=== PATIENT | female | born 1940 | race Caucasian/White ===

== ENCOUNTER 2019-06-26 11:19 | Emergency (ER) | payer MEDICARE, OTHER ==
--- NOTE | 2019-06-26 11:30 | EDM.PDOC ---
ED HPI GENERAL MEDICAL PROBLEM - General Stated Complaint: ER Time Seen by Provider: 06/26/19 11:30 Source of Information: Reports: Patient - History of Present Illness INITIAL COMMENTS - FREE TEXT/NARRATIVE: Patient fell and fractured her left ankle. Came in by EMS. He does appear to be fractured and dislocated. I did have correspondence with Ashley from orthoped[facility] and also ER physician Dr. Nicholas. He is he accepting physician. Patient will need a reduction and I am not comfortable with doing that here without a orthopedic surgeon nearby. 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 I did give her a dose of Dilaudid. Onset: Today Duration: Getting Worse Location: Reports: Lower Extremity, Left Quality: Reports: Sharp, Stabbing, Throbbing Severity: Moderate Improves with: Reports: Immobilization Worsens with: Reports: Movement Context: Reports: Trauma Associated Symptoms: Reports: No Other Symptoms - Related Data Allergies Allergy/AdvReac Type Severity Reaction Status Date / Time No Known Allergies Allergy Verified 10/10/13 13:13 Home Meds: Home Meds Calcium Carbonate/Vitamin D3 [Calcium 500 + Vit D 400] 1 each PO DAILY@12 [History] Glucosam/Chond/Collagen/Hyalur [Glucosamine Chondroitin] 1 each PO TID 10/10/13 [History] Loperamide HCl/Simethicone [Imodium Multi-Symptom Rel Cplt] 1 each PO ASDIRECTED PRN 10/10/13 [History] Menthol/Zinc Oxide [[place] Medicated Body Powd] 1 applic TP ASDIRECTED PRN [History] Multivitamin with Minerals [Multivitamins with Minerals] 1 each PO TUTHSA [History] Simvastatin [Zocor] 20 mg PO BEDTIME 10/10/13 [History] amLODIPine [Norvasc] 5 mg PO DAILY 10/10/13 [History] Acetaminophen [Tylenol Extra Strength] 500 mg PO BID 08/15/14 [History] Calcium Carbonate/Vitamin D3 [Calcium 500-Vit D3 400 Tablet] 2 tab PO DAILY@18 08/15/14 [History] Cholecalciferol (Vitamin D3) [Vitamin D3] 2,000 unit PO DAILY 08/15/14 [History] Loratadine [Claritin] 10 mg PO DAILY 08/15/14 [History] Alum Hydrox/Mag Hydrox/Simeth [Mag-Al Plus] 10 ml PO ASDIRECTED PRN 08/18/14 [ History] Olmesartan/Hydrochlorothiazide [Olmesartan-Hctz 20-12.5 mg Tab] 1 each PO DAILY 06/26/19 [History] Omeprazole 40 mg PO DAILY 06/26/19 [History] Oxybutynin 5 mg PO DAILY 06/26/19 [History] Past Medical History Cardiovascular History: Reports: Hypertension Social & Family History - Tobacco Use Smoking Status *Q: Unknown Ever Smoked Review of Systems - Review of Systems Review Of Systems: Comprehensive ROS is negative, except as noted in HPI. ED EXAM, GENERAL - Physical Exam Exam: See Below Exam Limited By: No Limitations General Appearance: Alert, Moderate Distress Respiratory/Chest: No Respiratory Distress Cardiovascular: Normal Peripheral Pulses Extremities: Leg Pain, Other (Deformity of the left ankle. Good pedal pulse. Good distal pulses. I do not challenge her range of motion because of the deformity.) Course - Vital Signs Text/Narrative:: X-rays transpired. Correspondence with [facility]. Also correspondence with Dr. Nicholas ER physician at [facility]. He accepted the patient at 1250. I did labs and EKG prior to her departure. NPO. IVF NS @75. - Orders/Labs/Meds Orders: Active Orders 24 hr Category Date Time Status EKG 12 Lead [EKG Documentation Completion] [RC] STAT Care 06/26/19 13:00 Ordered CBC WITH AUTO DIFF [HEME] Stat Lab 06/26/19 13:00 Ordered COMPREHENSIVE METABOLIC PN,CMP [CHEM] Stat Lab 06/26/19 13:00 Ordered MAGNESIUM [CHEM] Stat Lab 06/26/19 13:00 Ordered Meds: Medications Discontinued Medications Generic Name Dose Route Start Last Admin Trade Name Freq PRN Reason Stop Dose Admin Hydromorphone HCl 1 mg 06/26/19 12:25 06/26/19 12:30 Dilaudid IVPUSH 06/26/19 12:26 1 mg ONETIME ONE Administration Ondansetron HCl 8 mg 06/26/19 12:37 Zofran IVPUSH 06/26/19 12:38 ONETIME ONE Departure - Departure Time of Disposition: 12:55 Disposition: DC/Tfer to Medicaid [facility] Condition: Fair Clinical Impression: Dislocation of left ankle joint Qualifiers: Encounter type: initial encounter Qualified Code(s): S93.05XA - Dislocation of left ankle joint, initial encounter Closed left ankle fracture Qualifiers: Encounter type: initial encounter Qualified Code(s): S82.892A - Other fracture of left lower leg, initial encounter for closed fracture - Discharge Information *PRESCRIPTION DRUG MONITORING PROGRAM REVIEWED*: Not Applicable *COPY OF PRESCRIPTION DRUG MONITORING REPORT IN PATIENT CRISTINA: Not Applicable Referrals: Amy Grant DO [Primary Care Provider] - Forms: [facility] Event Note - Focused Exam Date Exam was Performed: 06/26/19 Time Exam was Performed: 13:11 - My Orders Last 24 Hours: My Active Orders 06/26/19 13:00 EKG 12 Lead [EKG Documentation Completion] [RC] STAT CBC WITH AUTO DIFF [HEME] Stat COMPREHENSIVE METABOLIC PN,CMP [CHEM] Stat MAGNESIUM [CHEM] Stat - Assessment/Plan Last 24 Hours: My Active Orders 06/26/19 13:00 EKG 12 Lead [EKG Documentation Completion] [RC] STAT CBC WITH AUTO DIFF [HEME] Stat COMPREHENSIVE METABOLIC PN,CMP [CHEM] Stat MAGNESIUM [CHEM] Stat
--- NOTE | 2019-06-26 12:18 | CR ---
[id number] RAD/RAD Ankle Left 3V Min EXAM: LEFT ANKLE 3 VIEWS INDICATION: TRAUMA, DISLOCATED LEFT ANKLE. COMPARISON: None. DISCUSSION: There is a trimalleolar fracture with posterior lateral dislocation of the talus and associated posterior lateral displacement of the the fibula and posterior medial malleoli. Moderate midfoot osteoarthritis. Achilles tendon attachment enthesopathy. Diffuse soft tissue swelling. IMPRESSION: 1. Trimalleolar ankle fracture dislocation. Ciro Zayas MD 06/26/19 2311 Thank you for allowing us to participate in the care of your patient.
[2019-06-26] MEDS ORDERED: HYDROmorphone 1 MG/ML Syringe IVPUSH ONE (12:25)
[2019-06-26] MEDS ORDERED: Ondansetron 4 MG/2 ML SDV IVPUSH ONE (12:37)
[2019-06-26] MEDS ORDERED: Sodium Chloride 0.9% 1,000 ML IV STA (13:12)
[2019-06-26 13:15] VITALS: BP 185/62; PULSE 105
[2019-06-26 13:43] LABS: ANION GAP 17.9 mmol/L (10-20)
== END 2019-06-26 13:45 | disposition short-term general hospital (02) ==
LOC: VM.ED 11:19
DX: S82.852A Displaced trimalleolar fracture of left lower leg, initial encounter for closed fracture (principal); I10 Essential (primary) hypertension; Z79.899 Other long term (current) drug therapy; W00.0XXA Fall on same level due to ice and snow, initial encounter
CPT/HCPCS: 36415; 73610; 80053; 83735; 85025; 93005; 96374; 99283; 99285; J1170; J7030

== ENCOUNTER 2022-03-15 13:04 | Emergency (ER) | payer MEDICARE, OTHER ==
[2022-03-15] MEDS ORDERED: GI Cocktail Oral Solution 30 ML PO ONE (13:30)
[2022-03-15 13:45] LABS: ANION GAP 15.6 mmol/L (5-15); CHLORIDE,CL 99 mmol/L (98-107); ESTIMATED GFR 32 mL/min (>=60); SODIUM,NA 136 mmol/L (136-145)
[2022-03-15 17:12] VITALS: BP 176/80; PULSE 92
== END 2022-03-15 14:20 | disposition home or self-care (01) ==
LOC: VM.ED 13:04
DX: K21.9 Gastro-esophageal reflux disease without esophagitis (principal); I10 Essential (primary) hypertension; Z79.899 Other long term (current) drug therapy
CPT/HCPCS: 36415; 71045; 80053; 84484; 85025; 99284; A9270

== ENCOUNTER 2022-12-16 12:57 | Emergency (ER) | payer MEDICARE, OTHER ==
[2022-12-16] MEDS: Lactated Ringers 1,000 ML IV ONE (13:13)
[2022-12-16 13:41] LABS: BASOPHILS PERCENT AUTO 0.5 % (0.2-1.2); EOSINOPHILS PERCENT AUTO 0.1 % (0.0-4.0); IMMATURE GRAN ABSOLUTE AUTO 0.01 x10^3/uL (0.00-0.07); LYMPHOCYTES ABSOLUTE AUTO 1.2 x10^3/uL (1.0-4.8); LYMPHOCYTES PERCENT AUTO 15.4 % (25.0-50.0); MEAN CORPUSCULAR HGB CONC 35.3 g/dL (32.0-36.0); MEAN CORPUSCULAR VOLUME 99.1 fL (78.0-93.0); MONOCYTES PERCENT AUTO 12.9 % (2.0-11.0); NEUTROPHILS ABSOLUTE AUTO 5.7 x10^3/uL (1.8-7.7); PLATELET COUNT,PLT 230 x10^3/uL (130-400); RED BLOOD CELL COUNT 3.43 x10^6/uL (4.00-5.50); WHITE BLOOD CELL COUNT,WBC 8.1 x10^3/uL (4.0-10.0)
[2022-12-16 13:58] LABS: PROTHROMBIN TIME 10.4 SEC (9.5-12.2); PTT,PARTIAL THROMBOPLSTIN TIME 27.9 SEC (23.6-33.6)
[2022-12-16 14:02] LABS: A/G RATIO 0.89; ALANINE AMINOTRANSFERASE,ALT 14 U/L (14-59); ALBUMIN 3.4 g/dL (3.4-5.0); ALKALINE PHOSPHATASE 84 U/L (46-116); ASPARTATE AMNIOTRANSFERASE,AST 22 U/L (15-37); BILIRUBIN TOTAL 0.5 mg/dL (0.2-1.0); BLOOD UREA NITROGEN,BUN 24 mg/dL (7-18); CALCIUM 9.3 mg/dL (8.5-10.1); CARBON DIOXIDE,CO2 23 mmol/L (21-32); CHLORIDE,CL 99 mmol/L (98-107); CREATININE 1.6 mg/dL (0.55-1.02); GLUCOSE RANDOM 119 mg/dL (70-99); MAGNESIUM 1.7 mg/dL (1.8-2.4); PHOSPHORUS 3.1 mg/dL (2.6-4.7); PROTEIN TOTAL,TP 7.2 g/dL (6.4-8.2); SODIUM,NA 135 mmol/L (136-145)
[2022-12-16 14:03] LABS: ESTIMATED GFR 32 mL/min (>=60)
[2022-12-16 15:28] VITALS: BP 136/78; PULSE 81
== END 2022-12-16 14:35 | disposition home or self-care (01) ==
LOC: VM.ED 12:57
DX: R55 Syncope and collapse (principal); E78.00 Pure hypercholesterolemia, unspecified; I10 Essential (primary) hypertension; E66.9 Obesity, unspecified; Z88.8 Allergy status to other drugs, medicaments and biological substances; Z79.899 Other long term (current) drug therapy
CPT/HCPCS: 70450; 71045; 80053; 83735; 84100; 84484; 85025; 85610; 85730; 86140; 93010; 96360; 99284; 99285; J7120; 36415

== ENCOUNTER 2023-01-16 09:26 | Day surgery (SDC) | payer MEDICARE, OTHER ==
[~2023-01-16 09:26] MED LIST: Lactated Ringers 1,000 ML IV SCH
[2023-01-16] MEDS ORDERED: Propofol 200 MG/20 ML SDV ONE (10:04)
[2023-01-16] MEDS ORDERED: fentaNYL 100 MCG/2 ML SDV ONE (10:04)
[2023-01-16 10:52] VITALS: BP 130/60; PULSE 83
[2023-02-13] MEDS ORDERED: Lactated Ringers 1,000 ML IV SCH (07:00)
== END 2023-01-16 11:40 | disposition home or self-care (01) ==
LOC: VM.SDS 09:26
PROVIDERS: ATTEND Surgery
DX: K21.00 Gastro-esophageal reflux disease with esophagitis, without bleeding (principal); K44.9 Diaphragmatic hernia without obstruction or gangrene; E78.5 Hyperlipidemia, unspecified; E78.2 Mixed hyperlipidemia; I12.9 Hypertensive chronic kidney disease with stage 1 through stage 4 chronic kidney disease, or unspecified chronic kidney disease; N18.32 Chronic kidney disease, stage 3b; M17.9 Osteoarthritis of knee, unspecified; K21.9 Gastro-esophageal reflux disease without esophagitis; E66.9 Obesity, unspecified; Z79.899 Other long term (current) drug therapy; Z68.39 Body mass index [BMI] 39.0-39.9, adult; J84.9 Interstitial pulmonary disease, unspecified
CPT/HCPCS: 43235; J2704; J3010; J7120; 00731

== ENCOUNTER 2024-05-17 22:41 | Emergency (ER) | payer MEDICARE, OTHER ==
[2024-05-17] MEDS ORDERED: Sodium Chloride 0.9% 10 ML Syringe FLUSH PRN (22:56)
[2024-05-17 23:17] VITALS: PULSE 90
[2024-05-17 23:20] LABS: HEMATOCRIT 30.8 % (33.0-47.0); HEMOGLOBIN 10.7 g/dL (12.0-16.0); MEAN CORPUSCULAR HEMOGLOBIN 35.3 pg (26.0-32.0); MEAN CORPUSCULAR HGB CONC 34.7 g/dL (32.0-36.0); MEAN CORPUSCULAR VOLUME 101.7 fL (78.0-93.0); PLATELET COUNT,PLT 220 x10^3/uL (130-400); RED BLOOD CELL COUNT 3.03 x10^6/uL (4.00-5.50)
[2024-05-17 23:32] LABS: EOSINOPHILS ABSOLUTE MAN 0.2 x10^3/uL (0.0-0.5); EOSINOPHILS PERCENT MAN 1 % (0-4); LYMPHOCYTES ABSOLUTE MAN 2.6 x10^3/uL (1.0-4.8); LYMPHOCYTES PERCENT MAN 16 % (25-50); MONOCYTES ABSOLUTE MAN 1.4 x10^3/uL (0.0-0.8); MONOCYTES PERCENT MAN 9 % (2-11); NEUTROPHILS ABSOLUTE MAN 11.8 x10^3/uL (1.8-7.7); SEG NEUTROPHILS PERCENT MAN 74 % (50-80)
[2024-05-17 23:33] LABS: PLATELET COUNT ESTIMATE ADEQUATE
[2024-05-17 23:43] LABS: A/G RATIO 0.72; ALBUMIN 2.8 g/dL (3.4-5.0); ANION GAP 19.8 mmol/L (5-15); BILIRUBIN TOTAL 0.8 mg/dL (0.2-1.0); C-REACTIVE PROTEIN 22.56 mg/dL (<=0.50); CALCIUM 9.1 mg/dL (8.5-10.1); CREATININE 1.9 mg/dL (0.55-1.02); EST CRCL DRUG DOSING (CG) 16.33 mL/min; POTASSIUM,K 3.8 mmol/L (3.5-5.1); PROTEIN TOTAL,TP 6.7 g/dL (6.4-8.2)
[2024-05-17] MEDS: Clindamycin HCl 150 MG Cap PO ONE ×2 (23:55→23:56)
[2024-05-17] MEDS: Enoxaparin 100 MG/1 ML Syringe SUBCUT ONE (23:57)
[2024-05-17] MEDS: Enoxaparin 30 MG/0.3 ML Syringe SUBCUT ONE (23:57)
[2024-05-18 00:11] VITALS: BP 120/51
== END 2024-05-18 00:18 | disposition home or self-care (01) ==
LOC: VM.ED 22:41
DX: L03.116 Cellulitis of left lower limb (principal); I12.9 Hypertensive chronic kidney disease with stage 1 through stage 4 chronic kidney disease, or unspecified chronic kidney disease; N18.9 Chronic kidney disease, unspecified; K21.9 Gastro-esophageal reflux disease without esophagitis; E78.00 Pure hypercholesterolemia, unspecified; E66.9 Obesity, unspecified; Z79.899 Other long term (current) drug therapy; Z68.37 Body mass index [BMI] 37.0-37.9, adult
CPT/HCPCS: 36415; 80053; 85025; 85379; 86140; 96372; 99283; 99284; A9270-GY; J1650